=== PATIENT | male | born 1985 | race Caucasian/White ===

== ENCOUNTER → 2023-05-12 | Outpatient (REF) | payer OTHER, SELFPAY | LOC: DHSLP | PROVIDERS: ATTENDING PHYSICIAN Nurse Practitioner Family; FAMILY PHYSICIAN Internal Medicine | DX: G47.30 Sleep apnea, unspecified (principal); R06.83 Snoring | CPT/HCPCS: 95800 ==

== ENCOUNTER 2023-05-25 11:32 | Emergency (ER) | payer OTHER, SELFPAY ==
[2023-05-25 11:39] VITALS: BP 164/103
[2023-05-25 12:16] LABS: % Basophils 0.5 % (0-2); % Eosinophils 0.8 % (0-6); % Immature Granulocytes 0.3 % (0-0.5); % Lymphocytes 10.5 % (20.5-51.1); % Monocytes 7.9 % (1.7-9.3); Absolute Basophils 0.1 10^3/uL (0-0.2); Absolute Eosinophils 0.1 10^3/uL (0-0.7); Absolute Lymphocytes 1.2 10^3/uL (1.2-3.4); Absolute Monocytes 0.9 10^3/uL (0.1-0.6); Absolute Neutrophils 9.1 10^3/uL (1.4-6.5); Hematocrit 46.4 % (39.0-52.0); Hemoglobin 16.2 g/dL (13.0-18.0); Mean Corp Hgb Conc. 34.9 g/dL (33.0-37.0); Mean Corpuscular Hgb 30.7 pg (27.0-31.0); Mean Corpuscular Volume 87.9 fL (80.0-94.0); Mean Platelet Volume 11.3 fL (7.4-10.4); Nucleated Red Blood Cells % 0 % (-); Platelet Count 277 10^3/uL (130-400); Red Blood Cell Count 5.28 10^6/uL (4.70-6.10); Red Cell Dist. Width 12.8 % (11.5-14.5); White Blood Cell Count 11.4 10^3/uL (4.8-10.8)
[2023-05-25 12:29] LABS: ALT (SGPT) 21 U/L (0-50); AST (SGOT) 34 U/L (17-59); Albumin 4.8 g/dl (3.5-5.0); Alkaline Phosphatase 45 U/L (38-126); Blood Urea Nitrogen 11 mg/dl (9-20); Calcium 9.3 mg/dl (8.4-10.2); Carbon Dioxide 30 mmol/L (22-30); Chloride 104 mmol/L (98-107); Glucose 103 mg/dl (70-99); Potassium 4.4 mmol/L (3.5-5.1); Sodium 138 mmol/L (135-145); Total Bilirubin 1.2 mg/dl (0.2-1.3); Total Protein 7.3 g/dl (6.3-8.2); eGFR > 60.00
[2023-05-25 12:40] LABS: Troponin I 0.017 ng/ml
--- NOTE | 2023-05-25 13:46 | ED.GENMED ---
History of Present Illness
General
Chief Complaint: Dizziness
Source: patient
Time Seen by Provider: 05/25/23 13:27
Travel History
Have you had any contact with someone who has COVID-19?: No
Do you have any symptoms of coronavirus? Fever > 100 degrees, chills, cough, shortness of breath, sore throat, loss of taste or smell, muscle aches, or headache?: No
History of Present Illness
History of Present Illness:
This patient is a 38-year-old male with a variety of symptoms that he had for some time, over a year including insomnia, headaches, visual complaints, dizziness, etc. However, he states that the symptoms are getting worse over the past week. He
also notes that he has had 'esophageal issues', and has been diagnosed with reflux and Yoon's. He notes that after he eats he will sometimes get a discomfort in the center of his chest feeling like 'tightness' that radiates to the right side of
the neck just inferior to the jaw which she describes as 'where the 'jugular is'. This pain will last considerable amount of time and gradually fade but never fully go away. He came to the emergency department today because he has never had a
cardiac evaluation and worried that this may be related. He currently has minimal discomfort. Patient also describes a variety of other complaints including other episodes where he developed left-sided 'sharp' chest discomfort, not pleuritic, not
associated with dyspnea. He denies associated fever, chills, nausea, vomiting. No focal neurological complaints such as focal weakness, numbness, tingling, etc.
Past History
Past History
ED Past Medical History: GERD, HTN and Other (Visual snow syndrome)
ED Past Surgical History: Urological and Other (Septoplasty)
Social History
Tobacco: Non-smoker
Alcohol: Occasional
Drug: None
Personal:
Living: with family
Phy Exam
Physical Exam
Physical Exam:
GENERAL: Alert , in no apparent distress
EYE: pupils equal and reactive, mild objective photophobia, no nystagmus
NECK: Supple, no significant adenopathy.
ENT: o/p clr, mmm.
CARDIAC: Regular rate and rhythm .
LUNGS: Clear breath sounds bilaterally, no acute respiratory distress, no wheezes/rales/rhonchi
ABDOMEN: Soft, without focal tenderness, no r/g, no cvat
NEUROLOGICAL: Alert and oriented, no focal neuro deficits, [id number] normal, cranial nerves II through XII intact
SKIN: Warm and dry, skin intact.
MUSCULOSKELETAL: No edema, well perfused.
PSYCH: Normal and appropriate interaction.
Course
Orders/Labs/Results
Orders:
Orders
05/25/23 11:44
Electrocardiogram (*1) Urgent
Reason for Study: Chest Pain
EKG- Treatment ONCE
05/25/23 11:56
Complete Blood Count/With Diff Urgent
Comprehensive Metabolic Panel Urgent
Troponin I Urgent
05/25/23 13:46
CT Head & Neck Angio W/wo IV Urgent
Comment:
Reason For Exam: heavy lifting, visual/balance sxs
05/25/23 14:57
Troponin I Urgent
05/25/23 15:07
ECG [Electrocardiogram (*1)] Urgent
Reason for Study: Chest Pain
Other Reason for Exam: serial trop
EKG- Treatment ONCE
Abnormal Lab Results
05/25/23
11:56
WBC 11.4 H 10^3/uL
(4.8-10.8)
MPV 11.3 H fL
(7.4-10.4)
Absolute Neuts (auto) 9.1 H 10^3/uL
(1.4-6.5)
Absolute Monos (auto) 0.9 H 10^3/uL
(0.1-0.6)
Neutrophils % 80.0 H %
(42.2-75.2)
Lymphocytes % 10.5 L %
(20.5-51.1)
Glucose 103 H mg/dl
(70-99)
05/25/23 11:56
05/25/23 11:56
Vital Signs
Initial and Last Documented VS:
Initial Vital Signs
Temp Pulse Resp BP Pulse Ox
98.0 F 79 16 164/103 98
05/25/23 11:39 05/25/23 11:39 05/25/23 11:39 05/25/23 11:39 05/25/23 11:39
Last Documented Vital Signs
Temp Pulse Resp BP Pulse Ox
98.0 F 58 16 156/81 98
05/25/23 11:39 05/25/23 14:07 05/25/23 14:07 05/25/23 14:07 05/25/23 11:39
*Critical Care Note
Total Time (30-74mins, 75-104mins- exclusive of procedures): Not Applicable
Update Note
Update Note:
Patient presents to the Emergency Department with ____chest and neck pain, etc.
Number and Complexity of Problems Addressed at the Encounter
� Chronic conditions affecting care:
� Acute Exacerbation and/or Progression of Chronic Illness:
� Differential Diagnosis includes: But not limited to ACS, reflux, vertebral/carotid artery dissection, etc.
Amount and/or Complexity of Data to be Reviewed and Analyzed
� I performed an independent evaluation of and my interpretation is:
EKG: Read by me, normal sinus rhythm, normal axis, no acute ischemia (initial ECG had sinus bradycardia)
CT: CTA head and neck read by radiology NAD
Xrays:
Laboratory Studies: Troponin x 2 unremarkable
Other:
� Review of other/old records reveals: Patient presents with a variety of medical records from [place] including an MRI of head and neck. I do not see evidence that the vascular system has been examined in the head and neck area.
� Clinical information was obtained by an independent historian:
� Prescriptions/Medications Considered but not given:
� Further testing considered but not performed:
Risk of Complications and/or Morbidity or Mortality of Patient Management
� Social determinants of health affecting care:
� Discussion with other providers (PCP, Hospitalists, Consultants, etc):
� Escalation of care including admission/observation vs risk of discharge considered: Highly doubt aortic dissection given patient does not describe 'red flag' findings such as ripping or tearing pain, radiating to the back, etc.
CTA of neck and head ordered given patient's history of heavy lifting, and associated complaints of neck discomfort, dizziness, visual complaints, etc.
Blood pressure spontaneously improved here. No specific emergent etiology noted for his symptoms today however patient will require continued follow-up. Discussed with patient importance and reasons return to the ER.
ED Attending Note
-
Portions of this chart may have been created with voice recognition software.� Occasional wrong word or��sound alike� substitutions may have occurred due to the inherent limitations of voice recognition software.
Discharge Plan
Departure
Patient Disposition: Home (Routine Discharge)
Date of Disposition: 05/25/23
Time of Disposition: 15:54
Patient with high blood pressure during this ER visit?: Yes
Condition: Good
Discharge Problem:
Chest pain
Instructions: BLOOD PRESSURE
Prescriptions:
No Action
ondansetron 4 MG tablet,disintegrating
4 mg PO TIDPRN PRN (Reason: nausea/vomiting) Qty: 12 0RF
Referrals:
Germania Bustos MD [Family Provider] -
Christiano Thorpe MD [Active] - Next open appointment
Activity Restrictions/Additional Instructions:
IF YOU DEVELOP RECURRENT CHEST PAIN, TROUBLE BREATHING, NUMBNESS, CHANGE IN SPEECH/BALANCE,
Interventions
Interventions:
*Risk Screen - Suicide Last Done: 05/25/23 14:00
*General Assessment Last Done: 05/25/23 16:29
*Neglect/Abuse Screening Last Done: 05/25/23 14:00
*ED COVID-19 Vaccine History Last Done: 05/25/23 11:39
*Nursing Disposition Last Done: 05/25/23 16:29
ED- Neurological Assessment Last Done: 05/25/23 12:35
ED- Cardiac Assessment Last Done: 05/25/23 16:29
Discharge Date and Time
Discharge Date/Time: 05/25/23 16:30
[2023-05-25 14:07] VITALS: BP 156/81
[2023-05-25 15:30] LABS: Troponin I < 0.012 ng/ml
== END 2023-05-25 16:30 | disposition home or self-care (01) ==
LOC: EMR 11:32
PROVIDERS: Student in an Organized Health Care Education/Training Program; EMERGENCY PHYSICIAN Emergency Medicine; FAMILY PHYSICIAN Internal Medicine
DX: R07.9 Chest pain, unspecified (principal); R51.9 Headache, unspecified; R42 Dizziness and giddiness; I10 Essential (primary) hypertension
CPT/HCPCS: 99285; 70496; 70498; 80053; 84484; 85025; 93005; Q9967

== ENCOUNTER → 2023-06-04 09:57 | Outpatient (REF) | payer OTHER, SELFPAY | LOC: RCS 09:57 | PROVIDERS: ATTENDING PHYSICIAN Nuclear Medicine Nuclear Cardiology; FAMILY PHYSICIAN Internal Medicine; REFERRING PHYSICIAN Internal Medicine | DX: I10 Essential (primary) hypertension (principal) | CPT/HCPCS: 93017 ==

== ENCOUNTER → 2023-06-16 11:11 | Outpatient (REF) | payer OTHER, SELFPAY | LOC: HWRCS 11:11 | PROVIDERS: ATTENDING PHYSICIAN Nuclear Medicine Nuclear Cardiology; FAMILY PHYSICIAN Internal Medicine | DX: I10 Essential (primary) hypertension (principal) | CPT/HCPCS: 93306 ==

== ENCOUNTER → 2023-09-02 | Outpatient (REF) | payer OTHER, SELFPAY | LOC: DHSLP | PROVIDERS: ATTENDING PHYSICIAN Internal Medicine Critical Care Medicine; FAMILY PHYSICIAN Internal Medicine | DX: G47.30 Sleep apnea, unspecified (principal); R06.83 Snoring | CPT/HCPCS: 95810 ==